=== PATIENT | female | born 1950 | race Asian ===

== ENCOUNTER 2019-09-22 18:36 | Inpatient (IN) | payer BC ==
[~2019-09-22] VITALS: Ht 162.6 cm; Wt 69.4 kg
[2019-09-22 18:44] VITALS: BP_SYST 159
--- NOTE | 2019-09-22 19:40 | NUR ---
Placed in room 5 . Placed on provider network analyst, blood pressure machine and pulse oximeter. To gown for exam. Side rails up. Report given to JUDIE PECK.
[2019-09-22] MEDS ORDERED: NACL 0.9% 1,000 ML IV SCH (19:44)
[2019-09-22 20:06] LABS: BASOPHILS # (AUTO) 0.1 K/uL (0.0-0.2); BASOPHILS % (AUTO) 0.6 % (0.0-2.0); EOSINOPHILS # (AUTO) 0.2 K/uL (0.0-0.4); EOSINOPHILS % (AUTO) 1.6 % (0.0-4.0); HEMATOCRIT 42.3 % (36-48); HEMOGLOBIN 13.8 g/dL (12.0-16.0); LYMPHOCYTES # (AUTO) 2.9 K/uL (1.0-5.5); LYMPHOCYTES % (AUTO) 27.9 % (20.5-51.5); MEAN CORPUSCULAR HEMOGLOBIN 28 pg (27-31); MEAN CORPUSCULAR HGB CONC 33 % (32-36); MEAN CORPUSCULAR VOLUME 87 fL (79.0-98.0); MONOCYTES # (AUTO) 0.7 K/uL (0.0-1.0); MONOCYTES % (AUTO) 7.2 % (1.7-9.3); NEUTROPHILS # (AUTO) 6.4 K/uL (1.8-7.7); NEUTROPHILS % (AUTO) 62.7 % (40.0-70.0); PLATELET COUNT (AUTO) 221 K/uL (130-430); RED BLOOD CELL COUNT(AUTO) 4.88 MIL/uL (4.2-6.2); RED CELL DISTRIBUTION WIDTH 13.5 % (9.0-15.0); WHITE BLOOD COUNT (AUTO) 10.3 K/uL (4.8-10.8)
[2019-09-22 20:11] LABS: ANION GAP 8 (5-15); CALCIUM 8.9 mg/dL (8.4-11.0); CHLORIDE 102 mmol/L (98-107); CREATININE 0.81 mg/dL (0.55-1.30); GLUCOSE 128 mg/dL (70-99); POTASSIUM 4.4 mmol/L (3.5-5.1); SODIUM SERUM 138 mmol/L (136-145); UREA NITROGEN, BLOOD 21 mg/dL (8-21)
[2019-09-22 20:14] LABS: GFR AFRICAN AMERICAN 91 mL/min (>90)
[2019-09-22 20:26] LABS: ALANINE AMINOTRANSFERASE 16 U/L (12-78); ALBUMIN 3.8 g/dL (3.4-4.8); ASPARTATE AMINOTRANSFERASE 13 U/L (10-37); TOTAL BILIRUBIN 0.9 mg/dL (0.0-1.0)
--- NOTE | 2019-09-22 20:40 | NUR ---
Portable X Ray bedside, well tolerated
--- NOTE | 2019-09-22 20:45 | NUR ---
Dr. العلي bedside for pt eval
--- NOTE | 2019-09-22 21:00 | NUR ---
Pt ELODIAEliezer from dinner with friends to ED C/O 1 day history of gradual onset, mild hypotensive episode. Patient was eating at a family/friends restaurant when she told them she was dizzy and prompted them to call 911. On EMS arrival, patient was noted to be lethargic but alert and oriented. Patient was noted to be hypotensive at the field. Per EMS, patients BP has improved to 150s in the systolic VSS now, no s/s of acute distress Resting on gurney rails up
--- NOTE | 2019-09-22 22:15 | NUR ---
VSS NO S/S OF ACUTE DISTRESS RESTING ON GURNEY RAILS UP
--- NOTE | 2019-09-22 23:08 | NUR ---
Pt stated " I still a bit dizzy to walk over for toilet access."
--- NOTE | 2019-09-23 00:11 | NUR ---
Dr. العلي aware, pt still yet to provide urine will try bedside solution
--- NOTE | 2019-09-23 01:12 | NUR ---
VSS no s/s of acute distress Resting on gurney rails up
--- NOTE | 2019-09-23 02:22 | NUR ---
Dr. العلي bedside for pt update
--- NOTE | 2019-09-23 03:30 | NUR ---
Pt successfully provided urine sample using bed cooper
--- NOTE | 2019-09-23 04:29 | NUR ---
Pt remains in stable condition, and is aware of admitted status
--- NOTE | 2019-09-23 05:31 | NUR ---
Stable overall condition, asymptomatic. VSS Resting on gurney rails up
[2019-09-23 05:37] LABS: BILIRUBIN,URINE NEGATIVE (NEGATIVE); CLARITY/URINE CLEAR (CLEAR); COLOR,URINE YELLOW (YELLOW); GLUCOSE,URINE NEGATIVE (NEGATIVE); KETONES,URINE NEGATIVE (NEGATIVE); LEUKOCYTE ESTERASE ,URINE NEGATIVE (NEGATIVE); NITRITE, URINE NEGATIVE (NEGATIVE); PROTEIN URINE NEGATIVE (NEGATIVE); UROBILINOGEN,URINE 0.2 (0.2-1.0)
[2019-09-23 05:39] LABS: BLOOD, URINE TRACE (NEGATIVE)
[2019-09-23 05:47] LABS: BACTERIA,URINE FEW /HPF (None Seen); WBC,URINE 0-3 /HPF (0-3)
--- NOTE | 2019-09-23 06:39 | NUR ---
Transfer to Tele via ACLS protocol. Licensed nurse present. IV present no signs or symptoms of infiltration.
--- NOTE | 2019-09-23 06:39 | NUR ---
Patient will be admitted to care of Dr. Hermosillo. Admitted to Tele unit. Will go to room 109C. Belongings list completed. Complete and up to date summary report printed. SBAR report to be given at bedside with opportunity for questions.
--- NOTE | 2019-09-23 06:39 | NUR ---
ADMISSION: The patient, ALEXEY DUNHAM, 68 y/o, F admitted by DOMINGO VACA MD, was given written information regarding hospital policies, unit procedures and contact persons. Valuables were checked and pt was oriented to her room and surrounding.
--- NOTE | 2019-09-23 06:48 | NUR ---
CONSULTATION PAGED REASON FOR CONSULTATION:ACUTE HYPOTENSION WAS CONSULT CALLED?Y PERSON WHO WAS NOTIFIED:EIRK CONSULTING PHYSICIAN:RICHARDSON ROGERS EMPLOYEE RELATIONS ADMINISTRATOR SPECIALTY:CARDIO EMPLOYEE RELATIONS ADMINISTRATOR PHONE NUMBER:[phone] REQUESTING PHYSICIAN:DOMINGO ROBLES
[2019-09-23 07:30] VITALS: BP_SYST 129
--- NOTE | 2019-09-23 07:30 | NUR ---
AM rounds: Patient is oriented x4. Instructed to call for assist due to dizziness, call light is within reach. Inquired about home medications, patient states, she takes cholesterol medication but doesn't know the name. No family can bring it either since she lives alone. Safety precautions maintained.
--- NOTE | 2019-09-23 10:00 | NUR ---
MRI : To MRI on a wheelchair.
[2019-09-23 12:08] VITALS: BP_SYST 124
[2019-09-23 13:39] VITALS: BP_SYST 98
--- NOTE | 2019-09-23 14:32 | NUR ---
MRI RESULT AND CARDIO CLEARANCE FOR DISCHARGE: Result reported to Dr. James. Cleared patient for DC home.
--- NOTE | 2019-09-23 16:30 | NUR ---
D/C Patient Patient given medication reconciliation form and D/C instructions. Exit Care provided. Patient verbalized understanding. MD discussed with patient the results and treatment provided. Ambulatory with steady gait for discharge to home. Patient in stable condition, ID band removed. IV catheter removed, intact and dressing applied, no active bleeding. All belongings sent with patient.
--- NOTE | 2019-10-01 12:36 | NUR ---
Discharge Follow Up Phone Call Phoned patient, . She stated that she was doing fine but still has some mild dizziness at times. She has had a follow up appointment with her PCP who will continue to monitor her dizziness. No questions or concerns.
== END 2019-09-23 16:25 | disposition home or self-care (01) | DRG 315 ==
LOC: SED 18:36 → STU 09-23 04:44
PROVIDERS: ADMIT Internal Medicine Hospice and Palliative Medicine; ATTEND Internal Medicine Hospice and Palliative Medicine
DX: I95.9 Hypotension, unspecified (principal); G45.9 Transient cerebral ischemic attack, unspecified; E78.5 Hyperlipidemia, unspecified; E78.00 Pure hypercholesterolemia, unspecified; Z79.899 Other long term (current) drug therapy
CPT/HCPCS: 36415; 70450-TC; 70551; 71045; 80053; 81000-TC; 82550-TC; 84484; 85025; 93005; 93306; 99285; G0378